=== PATIENT | female | born 1990 | race Caucasian/White ===

== ENCOUNTER 2016-08-07 21:21 | Emergency (ER) | payer OTHER ==
--- NOTE | 2016-08-07 22:57 | ED ORDER SUMMARY ---
..... Patient: ERIK PRESTON OrderSheet [facility] VisitID: [id number] [place] [address] 25y, F Registration Date/Time: 08/07/2016 ORDER SHEET Weight: 68.0 kg Allergies: No Known Drug Allergy GENERAL ORDERS: Tibia/Fibula Left Urgent (22:18 08/07/2016 Emily SCHAEFER) (Cancelled: Other22:22 Emily SCHAEFER) (Ack 22:23 Jesse) Tibia/Fibula Right Urgent (22:18 08/07/2016 Emily SCHAEFER) (Cancelled: Other22:22 Emily SCHAEFER) (Ack 22:23 Jesse) Tibia/Fibula Bilat Urgent (22:22 08/07/2016 Emily SCHAEFER) (Ack 22:23 Jesse) (22:47 MCabell) MEDICATION ORDERS: IV FLUIDS: ORDER SHEET NOTES: [Electronically signed by Robel Albright R.N. (23:07 08/07/2016)] [Electronically signed by Tao Guadarrama MD (08:21 08/09/2016)] [Electronically locked/signed by Robel Albright R.N. (23:08/07/2016)]
--- NOTE | 2016-08-07 22:57 | ED NURSING NOTES ---
Clinical Report - Nurses [facility] [address] [place] [address] 08/07/2016 21:24 Patient: ERIK PRESTON TRIAGE Triage time 21:32. Acuity: LEVEL 4. Chief Complaint: RIGHT LOWER EXTREMITY PAIN. LEFT LOWER EXTREMITY PAIN. --21:44 Robel Albright R.N. 21:32 08/07/16. BP: 124/74. HR: 85. RR: 18. O2 saturation: 100%. Temp: 98.4 F. Pain level now: 07/17. --21:44 Robel Albright R.N. Weight: 68 kg. Height/Length: 65.5 inches. BMI: 24.6. --21:45 Robel Albright R.N. Medications Tylenol Extra Strength Oral 1,000 mg, 4x a day. --21:37 Robel Albright R.N. Allergies No Known Drug Allergy. --21:38 Robel Albright R.N. Medication/allergy information source: the patient. --21:44 Robel Albright R.N. History Arrived by private vehicle. Historian: patient. Accompanied by spouse. ( Stress fracture on both lower legs in Mar 2016, pain ongoing since then but getting progressively worse describes it as shooting pain). This occurred (months 5). Provoking / relieving factors: worsened by standing and walking; relieved by OTC analgesics. 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 SOCIAL HX: Light tobacco smoker (cigarette)- less than 1/2 a pack per day. Occasional alcohol use; consumes one liquor drink weekly and glass of wine weekly. History of drug use: marijuana. (1 months ago). --21:44 Robel Albright R.N. PROBLEMS: Stress fracture. --21:39 Robel Albright R.N. ADDITIONAL SURGERIES: Ovarian cyst removal. --21:39 Robel Albright R.N. Interventions ID band on patient. To treatment room. --21:44 Robel Albright R.N. PHYSICAL ASSESSMENT Ambulatory to room. GENERAL / NEURO / PSYCH: Oriented X 4. Appears in no acute distress. Appears in pain. EXTREMITIES: Extremity pulses are within normal limits. Extremities exhibit normal ROM. Neuro-vascular status intact to the extremity. No lower extremity edema. Normal gait. Right leg: tenderness. Right ankle. Left leg: tenderness. SKIN: Skin intact. Skin is warm. --21:45 Robel Albright R.N. NURSING PROGRESS NOTES Patient identifiers checked. Call light placed in reach. Side rails up x 1. Bed placed in lowest position. Brakes of bed on. Patient ready for evaluation- chart flagged and ED physician and PST SPECIALIST notified. --21:45 Robel Albright R.N. DISPOSITION / DISCHARGE Condition at departure: stable. No learning barriers present. Discharge instructions provided and reviewed with the patient and spouse. Reviewed medication(s) side effects, precautions, dosing and course information. Prescription(s) given to the patient. Reviewed referral to an orthopedic surgeon. Work note given. Patient verbalized understanding. Written instructions provided in Vietnamese. The patient was discharged home and accompanied by spouse. She left the Emergency Department ambulatory and via private vehicle. Spouse driving. --23:06 Robel Albright R.N. 23:04 08/07/16. BP: 112/72. HR: 88. RR: 16. O2 saturation: 100%. Temp: deferred. --23:06 Robel Albright R.N. Departure time: 23:06. --23:06 Robel Albright R.N. Locked/Released at 08/07/2016 23:07 by Robel Albright R.N.
--- NOTE | 2016-08-07 22:57 | ED ORDER SUMMARY ---
..... Patient: ERIK PRESTON OrderSheet VisitID: [id number] [place] [address] 25y, F Registration Date/Time: 08/07/2016 ORDER SHEET Weight: 68.0 kg Allergies: No Known Drug Allergy GENERAL ORDERS: Tibia/Fibula Left Urgent (22:18 08/07/2016 Emily SCHAEFER) (Cancelled: Other22:22 Emily SCHAEFER) (Ack 22:23 Jesse) Tibia/Fibula Right Urgent (22:18 08/07/2016 Emily SCHAEFER) (Cancelled: Other22:22 Emily SCHAEFER) (Ack 22:23 Jesse) Tibia/Fibula Bilat Urgent (22:22 08/07/2016 Emily SCHAEFER) (Ack 22:23 Jesse) (22:47 MCabell) MEDICATION ORDERS: IV FLUIDS: ORDER SHEET NOTES: [Electronically signed by Robel Albright R.N. (23:07 08/07/2016)] [Electronically signed by Tao Guadarrama MD (08:21 08/09/2016)] [Electronically locked/signed by Robel Albright R.N. (23:08/07/2016)]
--- NOTE | 2016-08-07 22:57 | ED CLINICAL REPORT ---
Clinical Report - Physicians/Mid Levels [facility] [address] [place] [address] 08/07/2016 21:24 Patient: ERIK PRESTON Time Seen: 21:52 Aug 07 2016. Arrived- By private vehicle. Historian- patient. CPT: ER phys charges level 3 (#[id number]). HISTORY OF PRESENT ILLNESS Chief Complaint: LOWER EXTREMITY PAIN. Severity is described as being moderate. It has become recently worse. The quality is noted to be sharp, aching, "pain" and similar to prior episodes. 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 ( Stress fracture on both lower legs in Mar 2016, pain ongoing since then but getting progressively worse describes it as shooting pain). This occurred (months 5). Provoking / relieving factors: worsened by standing and walking; relieved by OTC analgesics.). Symptoms located in the area of the right leg and left leg. The patient has not had redness. No swelling, bladder dysfunction, bowel dysfunction, sensory loss or motor loss. She has had difficulty walking. Patient notes the possibility of an injury. Similar symptoms previously: Many times, as bad. Seen in the office. Evaluation/treatment- by [facility] medical staff. Diagnosis: (stress fractures). Recent medical care: Not recently seen/assessed. REVIEW OF SYSTEMS No cough, chest pain, difficulty breathing, fever or skin rash. No enlarged lymph nodes, neck pain, abdominal pain or vomiting. All systems otherwise negative, except as recorded above. PAST HISTORY No history of chronic back pain, arthritis, peripheral vascular disease, DVT or diabetes mellitus. Has not had a back injury. Medications: Tylenol Extra Strength Oral 1,000 mg, 4x a day. Allergies: No Known Drug Allergy. SOCIAL HISTORY Heavy tobacco smoker (cigarette)- less than 1 pack per day. Regular alcohol use. History of occasional drug use: marijuana. ADDITIONAL NOTES The nursing notes have been reviewed. PHYSICAL EXAM Vital Signs: 08/07/2016 21:32 BP: 124/74. HR: 85. RR: 18. O2 saturation: 100%. Temp: 98.4 F. Pain level now: 4/10. Appearance: Alert. Appears to be in pain. Patient in moderate distress. Eyes: Eyes normal inspection. Neck: Normal inspection. Neck supple. CVS: Normal heart rate and rhythm. Heart sounds normal. Respiratory: No respiratory distress. Breath sounds normal. Abdomen: Nontender. Back: Normal inspection. No tenderness. ROM normal. Skin: Skin intact. Skin warm. Normal skin color. Extremities: No signs of infection involving the lower extremities. No lower extremity edema. No calf tenderness. (Pt has palpation tenderness to the anterior mid-legs. NO deformity , swelling or erythema.). Gait: Limping gait. Neuro, Vascular and Tendons: No pulse deficit present. Lower extremity capillary refill not prolonged. Neuro: Oriented X 3. No motor deficit. No sensory deficit. Reflexes normal. LABS, X-RAYS, AND EKG X-Rays: Right tib/fib. Rt Tib/Fib X-ray: (non-healing mid-tibia fracture with slight deformity.). Views: AP and lateral. Technique: good. The X-rays were independently viewed by me and interpreted contemporaneously by me. Prior films were not available for comparison. Lt Tib/Fib X-ray: (no apparent fracture seen. No healing line seen.). Views: AP and lateral. Technique: good. The X-rays were independently viewed by me and interpreted contemporaneously by me. Prior films were not available for comparison. PROGRESS AND PROCEDURES Course of Care: Pt states she was diagnosed with bilateral leg, stress fractures while in the . These developed while doing drills that involved long runs with heavy packs on. She has had plain films and also MRI of both lower extremities. An attempt was made to let them heal but the last plain films taken 2 months ago showed no evidence of healing. Pt subsequently was discharged from the due to medical reasons. Pt recently moved to the area and is looking for pain control and orthopedic referral. Patient/family counseled. Disposition: Discharged. Condition: stable. CLINICAL IMPRESSION Bilateral lower leg stress fractures with poor healing. INSTRUCTIONS Use crutches until released. Elevate affected areas above chest level for two days until better. You may walk and bear weight as tolerated. (Avoid NSAIDS. Consider a bone stimulator.). Warnings: Further evaluation is necessary. Prescription Medications: Hydrocodone/APAP 5mg/325mg: take 1 to 2 orally every 6 hours as needed for pain. Dispense fifteen (15). No refills. Soma 350 mg: Take 1 orally every 6 hours as needed for muscle spasm. Dispense twenty (20). No refills. Substitution is permissible. Understanding of the discharge instructions verbalized by patient and family. Discharge instructions reviewed with and understanding was verbalized by spouse. [facility] , [address] [facility] [address] Follow up in one week. Call for an appointment. (Electronically signed by Tao Guadarrama MD 08/09/2016 8:21)
--- NOTE | 2016-08-07 22:57 | ED CLINICAL REPORT ---
Clinical Report - Physicians/Mid Levels [facility] [address] [place] [address] 08/07/2016 21:24 Patient: ERIK PRESTON Time Seen: 21:52 Aug 07 2016. Arrived- By private vehicle. Historian- patient. CPT: ER phys charges level 3 (#[id number]). HISTORY OF PRESENT ILLNESS Chief Complaint: LOWER EXTREMITY PAIN. Severity is described as being moderate. It has become recently worse. The quality is noted to be sharp, aching, "pain" and similar to prior episodes. 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 ( Stress fracture on both lower legs in Mar 2016, pain ongoing since then but getting progressively worse describes it as shooting pain). This occurred (months 5). Provoking / relieving factors: worsened by standing and walking; relieved by OTC analgesics.). Symptoms located in the area of the right leg and left leg. The patient has not had redness. No swelling, bladder dysfunction, bowel dysfunction, sensory loss or motor loss. She has had difficulty walking. Patient notes the possibility of an injury. Similar symptoms previously: Many times, as bad. Seen in the office. Evaluation/treatment- by [facility] medical staff. Diagnosis: (stress fractures). Recent medical care: Not recently seen/assessed. REVIEW OF SYSTEMS No cough, chest pain, difficulty breathing, fever or skin rash. No enlarged lymph nodes, neck pain, abdominal pain or vomiting. All systems otherwise negative, except as recorded above. PAST HISTORY No history of chronic back pain, arthritis, peripheral vascular disease, DVT or diabetes mellitus. Has not had a back injury. Medications: Tylenol Extra Strength Oral 1,000 mg, 4x a day. Allergies: No Known Drug Allergy. SOCIAL HISTORY Heavy tobacco smoker (cigarette)- less than 1 pack per day. Regular alcohol use. History of occasional drug use: marijuana. ADDITIONAL NOTES The nursing notes have been reviewed. PHYSICAL EXAM Vital Signs: 08/07/2016 21:32 BP: 124/74. HR: 85. RR: 18. O2 saturation: 100%. Temp: 98.4 F. Pain level now: 4/10. Appearance: Alert. Appears to be in pain. Patient in moderate distress. Eyes: Eyes normal inspection. Neck: Normal inspection. Neck supple. CVS: Normal heart rate and rhythm. Heart sounds normal. Respiratory: No respiratory distress. Breath sounds normal. Abdomen: Nontender. Back: Normal inspection. No tenderness. ROM normal. Skin: Skin intact. Skin warm. Normal skin color. Extremities: No signs of infection involving the lower extremities. No lower extremity edema. No calf tenderness. (Pt has palpation tenderness to the anterior mid-legs. NO deformity , swelling or erythema.). Gait: Limping gait. Neuro, Vascular and Tendons: No pulse deficit present. Lower extremity capillary refill not prolonged. Neuro: Oriented X 3. No motor deficit. No sensory deficit. Reflexes normal. LABS, X-RAYS, AND EKG X-Rays: Right tib/fib. Rt Tib/Fib X-ray: (non-healing mid-tibia fracture with slight deformity.). Views: AP and lateral. Technique: good. The X-rays were independently viewed by me and interpreted contemporaneously by me. Prior films were not available for comparison. Lt Tib/Fib X-ray: (no apparent fracture seen. No healing line seen.). Views: AP and lateral. Technique: good. The X-rays were independently viewed by me and interpreted contemporaneously by me. Prior films were not available for comparison. PROGRESS AND PROCEDURES Course of Care: Pt states she was diagnosed with bilateral leg, stress fractures while in the . These developed while doing drills that involved long runs with heavy packs on. She has had plain films and also MRI of both lower extremities. An attempt was made to let them heal but the last plain films taken 2 months ago showed no evidence of healing. Pt subsequently was discharged from the due to medical reasons. Pt recently moved to the area and is looking for pain control and orthopedic referral. Patient/family counseled. Disposition: Discharged. Condition: stable. CLINICAL IMPRESSION Bilateral lower leg stress fractures with poor healing. INSTRUCTIONS Use crutches until released. Elevate affected areas above chest level for two days until better. You may walk and bear weight as tolerated. (Avoid NSAIDS. Consider a bone stimulator.). Warnings: Further evaluation is necessary. Prescription Medications: Hydrocodone/APAP 5mg/325mg: take 1 to 2 orally every 6 hours as needed for pain. Dispense fifteen (15). No refills. Soma 350 mg: Take 1 orally every 6 hours as needed for muscle spasm. Dispense twenty (20). No refills. Substitution is permissible. Understanding of the discharge instructions verbalized by patient and family. Discharge instructions reviewed with and understanding was verbalized by spouse. [facility] , [address] [facility] [address] Follow up in one week. Call for an appointment. (Electronically signed by Tao Guadarrama MD 08/09/2016 8:21)
--- NOTE | 2016-08-07 22:57 | ED NURSING NOTES ---
Clinical Report - Nurses [facility] [address] [place] [address] 08/07/2016 21:24 Patient: ERIK PRESTON TRIAGE Triage time 21:32. Acuity: LEVEL 4. Chief Complaint: RIGHT LOWER EXTREMITY PAIN. LEFT LOWER EXTREMITY PAIN. --21:44 Robel Albright R.N. 21:32 08/07/16. BP: 124/74. HR: 85. RR: 18. O2 saturation: 100%. Temp: 98.4 F. Pain level now: 07/17. --21:44 Robel Albright R.N. Weight: 68 kg. Height/Length: 65.5 inches. BMI: 24.6. --21:45 Robel Albright R.N. Medications Tylenol Extra Strength Oral 1,000 mg, 4x a day. --21:37 Robel Albright R.N. Allergies No Known Drug Allergy. --21:38 Robel Albright R.N. Medication/allergy information source: the patient. --21:44 Robel Albright R.N. History Arrived by private vehicle. Historian: patient. Accompanied by spouse. ( Stress fracture on both lower legs in Mar 2016, pain ongoing since then but getting progressively worse describes it as shooting pain). This occurred (months 5). Provoking / relieving factors: worsened by standing and walking; relieved by OTC analgesics. 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 SOCIAL HX: Light tobacco smoker (cigarette)- less than 1/2 a pack per day. Occasional alcohol use; consumes one liquor drink weekly and glass of wine weekly. History of drug use: marijuana. (1 months ago). --21:44 Robel Albright R.N. PROBLEMS: Stress fracture. --21:39 Robel Albright R.N. ADDITIONAL SURGERIES: Ovarian cyst removal. --21:39 Robel Albright R.N. Interventions ID band on patient. To treatment room. --21:44 Robel Albright R.N. PHYSICAL ASSESSMENT Ambulatory to room. GENERAL / NEURO / PSYCH: Oriented X 4. Appears in no acute distress. Appears in pain. EXTREMITIES: Extremity pulses are within normal limits. Extremities exhibit normal ROM. Neuro-vascular status intact to the extremity. No lower extremity edema. Normal gait. Right leg: tenderness. Right ankle. Left leg: tenderness. SKIN: Skin intact. Skin is warm. --21:45 Robel Albright R.N. NURSING PROGRESS NOTES Patient identifiers checked. Call light placed in reach. Side rails up x 1. Bed placed in lowest position. Brakes of bed on. Patient ready for evaluation- chart flagged and ED physician and SUPERVISOR [employer] FORMER notified. --21:45 Robel Albright R.N. DISPOSITION / DISCHARGE Condition at departure: stable. No learning barriers present. Discharge instructions provided and reviewed with the patient and spouse. Reviewed medication(s) side effects, precautions, dosing and course information. Prescription(s) given to the patient. Reviewed referral to an orthopedic surgeon. Work note given. Patient verbalized understanding. Written instructions provided in Nepali. The patient was discharged home and accompanied by spouse. She left the Emergency Department ambulatory and via private vehicle. Spouse driving. --23:06 Robel Albright R.N. 23:04 08/07/16. BP: 112/72. HR: 88. RR: 16. O2 saturation: 100%. Temp: deferred. --23:06 Robel Albright R.N. Departure time: 23:06. --23:06 Robel Albright R.N. Locked/Released at 08/07/2016 23:07 by Robel Albright R.N.
--- NOTE | 2016-08-07 23:35 | DIAGNOSTIC IMAGING REPORT ---
PROCEDURE: XR TIBIA AND FIBULA BILATERAL INDICATION: PAIN TECHNIQUE: Two views of the right and left tibia and fibula. COMPARISON: None. FINDINGS: Right leg: There is a subtle focal thickening along the posteromedial cortex of the tibial diaphysis approximately 18 cm distal to the knee joint line. No visible acute complete fracture. No other discrete osseous lesion. Growth arrest lines in the proximal and distal tibial metaphysis. Left leg: Normal mineralization. No fractures. Normal alignment. Normal soft tissues. Grossly normal alignment of the knee and ankle joint. Soft tissues are normal. IMPRESSION: 1. Subtle focal cortical thickening in the right mid tibial diaphysis suspicious for a stress fracture/stress response. 2. Left tibia and fibula are intact.
--- NOTE | 2016-08-09 08:21 | ED DISCHARGE INSTRUCTIONS ---
Patient: ERIK PRESTON General Instructions [facility] VisitID: [id number] [address] [place] [address] 25y, F Registration Date/Time: 08/07/2016 Bilateral lower leg stress fractures with poor healing. INSTRUCTIONS Use crutches until released. Elevate affected areas above chest level for two days until better. You may walk and bear weight as tolerated. (Avoid NSAIDS. Consider a bone stimulator.). Warnings: Further evaluation is necessary. Prescription Medications: Hydrocodone/APAP 5mg/325mg: take 1 to 2 orally every 6 hours as needed for pain. Dispense fifteen (15). No refills. Soma 350 mg: Take 1 orally every 6 hours as needed for muscle spasm. Dispense twenty (20). No refills. Substitution is permissible. Understanding of the discharge instructions verbalized by patient and family. Discharge instructions reviewed with and understanding was verbalized by spouse. [facility] with: [facility], , [address], [place], [address] Follow up in one week. Call for an appointment. ADDITIONAL INFORMATION Crutch Walking Crutch Adjustment Make sure the crutches you use are adjusted to fit you. When you stand, there should be room to fit 2-3 fingers between the top of the crutch and your armpit. Your elbow should be slightly bent when holding the hand hop worker. Crutch Walking: Place the crutches forward 12" in front of and 6" to the side of your feet. Lean your weight forward as you push down on the handgrips. Your weight should be on your hands and yourstrong leg, not your armpits . Let your body swing through, landing on the strong leg. Advance the crutches forward again. The crutch and the injured leg should move together. Going Up Steps: ("Up with the good") With both crutches on the same step as your feet, push down on the handgrips. Balancing with very light pressure on the weak leg, let your hands support your weight as you raise your strong leg onto the next higher step. Transfer all your weight to your strong leg (still bent) as you move the crutches up to the next step alongside the strong leg. With your weight evenly balanced on the two crutches and your strong leg, straighten your strong knee as you raise the weak leg up to the next step. Going Down Steps: ("Down with the bad") With both crutches on the same step as your feet, push down on the handgrips. With your weight evenly balanced on the two crutches and your strong leg, bend your strong knee as you lower the weak leg down to the next step. Let your strong leg support you (still bent) as you move the crutches down alongside the weak leg. Transfer your weight to your hands, balancing with very light pressure on the weak leg as you lower your strong leg alongside your weak leg. You have been given the following additional information: Crutch Walking You may walk and bear weight as tolerated. (Electronically signed by Tao Guadarrama MD 08/09/2016 8:21)
--- NOTE | 2016-08-09 08:21 | ED MAR SUMMARY ---
..... Medication Administration [facility] [address] [place], [place] [id number] Patient: ERIK PRESTON Visit ID: [id number] 25y, F Weight: 68.0 kg Height/Length: 65.5 in BMI: 24.6 ALLERGIES: No Known Drug Allergy
--- NOTE | 2016-08-09 08:21 | ED MED RECONCILIATION SUMMARY ---
Patient: ERIK PRESTON Medication Reconciliation Report [facility] VisitID: [id number] [address] [place] [address] 25y, F Registration Date/Time: 08/07/2016 Weight: 68.0 kg Height/Length: 60 in. BMI: 24.6 ALLERGIES: No Known Drug Allergy The patient's Home Medications are listed below: THE FOLLOWING MEDICATIONS NEED TO BE RECONCILED: Tylenol Extra Strength Oral 1,000 mg, 4x a day The source(s) of the original Home Medication information: patient The following Medications were given to the patient in the Emergency Department: None. The following Medications were prescribed to the patient: Hydrocodone/APAP 5mg/325mg: take 1 to 2 orally every 6 hours as needed for pain. Dispense fifteen (15). No refills. -- Tao Guadarrama MD Soma 350 mg: Take 1 orally every 6 hours as needed for muscle spasm. Dispense twenty (20). No refills. Substitution is permissible. -- Tao Guadarrama MD
--- NOTE | 2016-08-09 08:21 | ED DISCHARGE INSTRUCTIONS ---
Patient: ERIK PRESTON General Instructions [facility] VisitID: [id number] [address] [place] [address] 25y, F Registration Date/Time: 08/07/2016 Bilateral lower leg stress fractures with poor healing. INSTRUCTIONS Use crutches until released. Elevate affected areas above chest level for two days until better. You may walk and bear weight as tolerated. (Avoid NSAIDS. Consider a bone stimulator.). Warnings: Further evaluation is necessary. Prescription Medications: Hydrocodone/APAP 5mg/325mg: take 1 to 2 orally every 6 hours as needed for pain. Dispense fifteen (15). No refills. Soma 350 mg: Take 1 orally every 6 hours as needed for muscle spasm. Dispense twenty (20). No refills. Substitution is permissible. Understanding of the discharge instructions verbalized by patient and family. Discharge instructions reviewed with and understanding was verbalized by spouse. Follow-up with: [facility], , [address], [place], [id number] Follow up in one week. Call for an appointment. ADDITIONAL INFORMATION Crutch Walking Crutch Adjustment Make sure the crutches you use are adjusted to fit you. When you stand, there should be room to fit 2-3 fingers between the top of the crutch and your armpit. 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 Crutch Walking: Place the crutches forward 12" in front of and 6" to the side of your feet. Lean your weight forward as you push down on the handgrips. Your weight should be on your hands and yourstrong leg, not your armpits . Let your body swing through, landing on the strong leg. Advance the crutches forward again. The crutch and the injured leg should move together. Going Up Steps: ("Up with the good") With both crutches on the same step as your feet, push down on the handgrips. Balancing with very light pressure on the weak leg, let your hands support your weight as you raise your strong leg onto the next higher step. Transfer all your weight to your strong leg (still bent) as you move the crutches up to the next step alongside the strong leg. With your weight evenly balanced on the two crutches and your strong leg, straighten your strong knee as you raise the weak leg up to the next step. Going Down Steps: ("Down with the bad") With both crutches on the same step as your feet, push down on the handgrips. With your weight evenly balanced on the two crutches and your strong leg, bend your strong knee as you lower the weak leg down to the next step. Let your strong leg support you (still bent) as you move the crutches down alongside the weak leg. Transfer your weight to your hands, balancing with very light pressure on the weak leg as you lower your strong leg alongside your weak leg. You have been given the following additional information: Crutch Walking You may walk and bear weight as tolerated. (Electronically signed by Tao Guadarrama MD 08/09/2016 8:21)
--- NOTE | 2016-08-09 08:21 | ED MAR SUMMARY ---
..... Medication Administration Record [facility] [address], [place] [id number] Patient: ERIK PRESTON Visit ID: [id number] 25y, F Weight: 68.0 kg Height/Length: 65.5 in BMI: 24.6 ALLERGIES: No Known Drug Allergy
--- NOTE | 2016-08-09 08:21 | ED MED RECONCILIATION SUMMARY ---
Patient: ERIK PRESTON Medication Reconciliation Report [facility] VisitID: [id number] [address] [place] [address] 25y, F Registration Date/Time: 08/07/2016 Weight: 68.0 kg Height/Length: 60 in. BMI: 24.6 ALLERGIES: No Known Drug Allergy The patient's Home Medications are listed below: THE FOLLOWING MEDICATIONS NEED TO BE RECONCILED: Tylenol Extra Strength Oral 1,000 mg, 4x a day The source(s) of the original Home Medication information: patient The following Medications were given to the patient in the Emergency Department: None. The following Medications were prescribed to the patient: Hydrocodone/APAP 5mg/325mg: take 1 to 2 orally every 6 hours as needed for pain. Dispense fifteen (15). No refills. -- Tao Guadarrama MD Soma 350 mg: Take 1 orally every 6 hours as needed for muscle spasm. Dispense twenty (20). No refills. Substitution is permissible. -- Tao Guadarrama MD
== END 2016-08-07 23:05 | disposition home or self-care (01) ==
LOC: ED SRH 21:21
DX: M84.361G Stress fracture, right tibia, subsequent encounter for fracture with delayed healing (principal); M84.362G Stress fracture, left tibia, subsequent encounter for fracture with delayed healing; F17.210 Nicotine dependence, cigarettes, uncomplicated

== ENCOUNTER → 2016-09-01 | Outpatient (CLI) | payer OTHER ==
--- NOTE | 2016-09-01 15:07 | DIAGNOSTIC IMAGING REPORT ---
PROCEDURE: MR LOW EXT NONJOINT WO CON-LT INDICATION: LT TIBIA STRESS FX TECHNIQUE: Axial, coronal and sagittal T1 and STIR sequences. COMPARISON: Bilateral tibia and fibula x-rays 08/07/2016. FINDINGS: Bones and soft tissues are unremarkable. No evidence of periosteal edema or bone marrow edema.. Vascular structures are unremarkable. IMPRESSION: 1. No evidence of a left lower extremity of stress fracture.
--- NOTE | 2016-09-01 15:14 | DIAGNOSTIC IMAGING REPORT ---
PROCEDURE: MR LOW EXT NONJOINT WO CON-RT INDICATION: RT TIBIA STRESS FX TECHNIQUE: Axial, coronal and sagittal T1 and STIR sequences. COMPARISON: Bilateral tibia and fibula x-rays 08/07/2016 FINDINGS: There is a minor tibial midshaft bone marrow edema approximately 15 cm distal to the right knee joint line, consistent with a stress fracture. There is no visible fracture line. There is no periosteal edema. Muscles and vascular structures are unremarkable. IMPRESSION: 1. Minor right tibial midshaft bone marrow edema consistent with a stress fracture.
== END ==
LOC: MRI SRH 12:44
DX: R60.9 Edema, unspecified (principal)